=== PATIENT | male | born 1970 | race American Indian/Alaskan Native ===

== ENCOUNTER 2018-01-28 15:19 | Emergency (ER) | payer SELFPAY ==
[2018-01-28 15:40] VITALS: BP 110/73
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
[2018-01-28] MEDS: Acetaminophen/HYDROcodone 325-10 MG Tab PO ONE (16:19)
[2018-01-28] MEDS: Lidocaine 1% 30 ML SDV INJECT ONE (16:20)
[2018-01-28] MEDS: ceFAZolin 1 GM Vial IVPUSH ONE (16:54)
[2018-01-28] MEDS: Diphtheria,Pertussis(Acell),Tetanus Vaccine 0.5 ML SDV IM ONE (17:02)
[2018-01-28] MEDS: Sodium Chloride 0.9% 10 ML Syringe FLUSH PRN (17:05)
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
== END 2018-01-28 17:15 | disposition home or self-care (01) ==
LOC: DL.ED 15:19
DX: S62.327B Displaced fracture of shaft of fifth metacarpal bone, left hand, initial encounter for open fracture (principal); S43.101A Unspecified dislocation of right acromioclavicular joint, initial encounter; S20.211A Contusion of right front wall of thorax, initial encounter; V18.0XXA Pedal cycle driver injured in noncollision transport accident in nontraffic accident, initial encounter
CPT/HCPCS: 29125; 71101; 73000; 73130; 90471; 90715; 96374; 99284; A9270; J0690; J7050